=== PATIENT | female | born 1965 | race Caucasian/White ===

== ENCOUNTER → 2016-11-24 | Day surgery (SDC) | payer OTHER ==
[~2016-11-24] MED LIST: ALDACTONE25 MG PO; COATED ASPIRIN325 M1 PO; CRESTOR10 MG PO; FEROSUL325 ( 651 PO; INNOPRAN XL80 MG PO; LO-DOSE ASPIRIN81 M1 PO; METFORMIN HCL500 M3 PO; METFORMIN HCL500 M4 PO; MULTI-DAY VITAM1 TAB PO; PROTONIX PO; ROXICET 5/325 SO5 ML PO; SYNTHROID PO; SYNTHROID0.1 MG PO; ZOLOFT100 MG PO
--- NOTE | ~2016-11-24 | OR ---
Unit #: [id number] #: [id number] Patient: DIONTE ORITZ [id number] [address] [place], [place] [address] [id number] MR#: [id number] NAME: DIONTE ORTIZ. ROOM: Date of Procedure: 11/24/2016 Admission Date: 11/24/2016 Surgeon: Neri Zamarripa III, M.D. : 1965 Attending Physician: Neri Zamarripa III, M.D. Referring Physician: Neri Zamarripa III, M.D. Primary Care Physician: Lucia Pizarro M.D. OPERATIVE REPORT PREOPERATIVE DIAGNOSES Screening colonoscopy, family history of colon cancer, and personal history of polyps. POSTOPERATIVE DIAGNOSIS Mild colitis at 30 cm. PROCEDURE PERFORMED Colonoscopy to cecum with cold biopsy. ANESTHESIA MAC. SPECIMENS Colon biopsies were taken at 30 cm. COMPLICATIONS None apparent. INDICATIONS FOR PROCEDURE This is a 51-year-old lady, who has a family history of colon cancer and a personal history of polyps. She is here today for colonoscopy. She has also had some recent rectal bleeding that her told me about afterwards. DESCRIPTION OF PROCEDURE After consent was obtained, the patient was brought to the endoscopy suite, placed in the left lateral decubitus position. We titrated the above sedation and I performed a rectal exam, and I did not feel any masses. The scope was placed within the rectal vault. Air was insufflated. I navigated the scope all the way to the cecum without any difficulty. She had no evidence of any polyps or masses. There was no diverticular disease seen. She did have a small focal area of mild colitis at about 30 cm. Biopsies of this were obtained with cold biopsy forceps. I retroflexed the scope within the rectum and I did not see any other masses. The scope was then carefully withdrawn. The patient tolerated the procedure without any problems. I will have her call my office early next week for biopsy results. Dictated by... Neri Zamarripa III, M.D. Unit #: [id number] #: [id number] Patient: DIONTE ORTIZ VCL/modl TD: 11/25/2016 13:22 JOB #: [id number] OPERATIVE REPORT Page 1 of 1 X Neri Zamarripa III, MD PROCEDURE OPERATIVE NOTE
== END | disposition home or self-care (01) ==
LOC: COPS 10:30
DX: Z12.11 Encounter for screening for malignant neoplasm of colon (principal); K63.5 Polyp of colon; K52.9 Noninfective gastroenteritis and colitis, unspecified; I10 Essential (primary) hypertension; E11.9 Type 2 diabetes mellitus without complications; E03.9 Hypothyroidism, unspecified; E78.5 Hyperlipidemia, unspecified; Z87.891 Personal history of nicotine dependence; Z80.0 Family history of malignant neoplasm of digestive organs; Z79.82 Long term (current) use of aspirin; Z79.84 Long term (current) use of oral hypoglycemic drugs; Z79.899 Other long term (current) drug therapy; Z90.710 Acquired absence of both cervix and uterus; Z98.51 Tubal ligation status; Z98.84 Bariatric surgery status
CPT/HCPCS: 82947; 88305; J2250